=== PATIENT | male | born 1990 | race Native Hawaiian/Other Pacific Islander ===

== ENCOUNTER 2018-04-21 15:20 | Emergency (ER) | payer OTHER ==
[~2018-04-21] VITALS: Ht 175.3 cm; Wt 90.7 kg
[~2018-04-21 15:20] MED LIST: HYDROCODONE-APA1 TA1 PO
[2018-04-21 16:38] VITALS: BP 142/72
== END 2018-04-21 16:38 | disposition home or self-care (01) ==
LOC: M.ERS 15:20
DX: S62.336A Displaced fracture of neck of fifth metacarpal bone, right hand, initial encounter for closed fracture (principal); W22.01XA Walked into wall, initial encounter; Y93.89 Activity, other specified; Y92.89 Other specified places as the place of occurrence of the external cause; Y99.8 Other external cause status